=== PATIENT | male | born 1965 | race African-American/Black ===

== ENCOUNTER 2020-01-02 03:06 | Inpatient (IN) | payer MEDICAID, OTHER ==
[~2020-01-02] VITALS: Ht 193 cm; Wt 109.3 kg
[2020-01-02] MEDS ORDERED: ALBUTEROL (0.083%) 2.5MG/3ML NEB HHN STA (03:22)
[2020-01-02] MEDS ORDERED: IPRATROPIUM BROMIDE (0.02%) 0.5MG/2.5ML NEB HHN STA (03:22)
[2020-01-02] MEDS ORDERED: SODIUM CHLORIDE 0.9% 1,000 ML IV ONE (03:22)
[2020-01-02] MEDS ORDERED: AZITHROMYCIN 500 MG in DEXT 5% WATER 250 ML IV ONE (04:00)
[2020-01-02] MEDS ORDERED: CEFTRIAXONE 1 G PREMIX 50 ML IV ONE (04:00)
[2020-01-02 04:13] LABS: BASOPHILS % 0.5 % (0.0-2.0); EOSINOPHILS % 0.8 % (0.0-5.0); HEMATOCRIT. 43.8 % (42.0-52.0); HEMOGLOBIN. 14.2 g/dL (14.0-18.0); LYMPHOCYTES % 7.1 % (20.0-50.0); MEAN CORPUSCULAR HEMOGLOBIN 25.9 pg (28.0-32.0); MEAN CORPUSCULAR VOLUME 79.6 fL (80.0-94.0); MEAN PLATELET VOLUME 7.2 fl (7.4-10.4); MONOCYTES % 2.8 % (2.0-8.0); NEUTROPHILS % 88.8 % (40.0-76.0); PLATELET 239 x1000/uL (130-400); RED CELL DISTRIBUTION WIDTH 14.8 % (11.6-14.6)
[2020-01-02 04:15] LABS: CHLORIDE 102 mEq/L (98-107)
[2020-01-02] MEDS ORDERED: MORPHINE SULFATE 4 MG/ML CPJ (NOT FOR IM USE) IV ONE (06:00)
[2020-01-02] MEDS ORDERED: IPRATROPIUM/ALBUTEROL 0.5-3(2.5)MG/3ML NEB NEB PRN (07:00)
[2020-01-02] MEDS ORDERED: CLONIDINE 0.1MG TABLET PO PRN (07:00)
[2020-01-02] MEDS ORDERED: DOCUSATE SODIUM 100MG CAPSULE PO PRN (07:00)
[2020-01-02] MEDS ORDERED: ACETAMINOPHEN 325MG TABLET PO PRN (07:00)
[2020-01-02] MEDS ORDERED: AZITHROMYCIN 500 MG in DEXT 5% WATER 250 ML IV SCH (07:00)
[2020-01-02] MEDS ORDERED: ONDANSETRON HCL 4MG/2ML INJ IV PRN (07:00)
[2020-01-02] MEDS ORDERED: CEFTRIAXONE 1 G PREMIX 50 ML IV SCH (07:00)
[2020-01-02] MEDS: SODIUM CHLORIDE 0.45% 1,000 ML IV SCH ×2 (08:38→21:20)
[2020-01-02] MEDS: ENOXAPARIN 40MG/0.4ML SYR SUBCUT SCH (08:40)
[2020-01-02] MEDS: HYDROCODONE/ACETAMINOPHEN 5/325MG TABLET PO PRN ×2 (08:40→16:25)
[2020-01-02] MEDS ORDERED: KETOROLAC 15MG/ML VIAL IV PRN (10:30)
[2020-01-02 15:22] VITALS: BP 110/70
[2020-01-02 15:29] VITALS: BP 110/70
[2020-01-02] MEDS ORDERED: PNEUMOCOCCAL 23-VAL P-SAC VAC 0.5 ML IM ONE (16:15)
[2020-01-02 20:00] VITALS: BP 117/75
[2020-01-03] VITALS: BP 105/61
[2020-01-03] MEDS: HYDROCODONE/ACETAMINOPHEN 5/325MG TABLET PO PRN ×3 (01:53→14:46)
[2020-01-03 04:00] VITALS: BP 99/56
[2020-01-03] MEDS: CEFTRIAXONE 1 G PREMIX 50 ML IV SCH (05:10)
[2020-01-03] MEDS: AZITHROMYCIN 500 MG in DEXT 5% WATER 250 ML IV SCH (06:31)
[2020-01-03 06:55] LABS: BASOPHILS % 0.4 % (0.0-2.0); HEMATOCRIT. 39.2 % (42.0-52.0); HEMOGLOBIN. 12.7 g/dL (14.0-18.0); LYMPHOCYTES % 7.1 % (20.0-50.0); MEAN CORPUSCULAR HEMOGLOBIN 25.7 pg (28.0-32.0); MEAN CORPUSCULAR VOLUME 79.1 fL (80.0-94.0); MEAN PLATELET VOLUME 7.2 fl (7.4-10.4); MONOCYTES % 5.1 % (2.0-8.0); NEUTROPHILS % 83.4 % (40.0-76.0); PLATELET 257 x1000/uL (130-400); RED BLOOD CELL COUNT 4.96 mill/uL (4.7-6.1); RED CELL DISTRIBUTION WIDTH 15.1 % (11.6-14.6)
[2020-01-03 07:57] LABS: CHLORIDE 106 mEq/L (98-107)
[2020-01-03 08:00] VITALS: BP 114/69
[2020-01-03] MEDS: ENOXAPARIN 40MG/0.4ML SYR SUBCUT SCH (08:37)
[2020-01-03] MEDS: SODIUM CHLORIDE 0.45% 1,000 ML IV SCH (11:03)
[2020-01-03 12:00] VITALS: BP 114/73
[2020-01-03 16:00] VITALS: BP 115/61
[2020-01-03] MEDS: GUAIFENESIN 600MG ER TABLET PO SCH ×2 (16:57→21:12)
[2020-01-03 20:00] VITALS: BP 114/71
[2020-01-03] MEDS: IPRATROPIUM/ALBUTEROL 0.5-3(2.5)MG/3ML NEB HHN SCH (21:36)
[2020-01-04] VITALS: BP 107/67
[2020-01-04] MEDS: SODIUM CHLORIDE 0.45% 1,000 ML IV SCH (00:34)
[2020-01-04 04:00] VITALS: BP 126/82
[2020-01-04] MEDS: IPRATROPIUM/ALBUTEROL 0.5-3(2.5)MG/3ML NEB HHN SCH ×2 (04:50→09:17)
[2020-01-04] MEDS: CEFTRIAXONE 1 G PREMIX 50 ML IV SCH (05:18)
[2020-01-04] MEDS: AZITHROMYCIN 500 MG in DEXT 5% WATER 250 ML IV SCH (06:20)
[2020-01-04 08:35] VITALS: BP 115/69
[2020-01-04] MEDS: GUAIFENESIN 600MG ER TABLET PO SCH (09:36)
[2020-01-04] MEDS: ENOXAPARIN 40MG/0.4ML SYR SUBCUT SCH (09:40)
[2020-01-04 10:02] VITALS: BP 117/72
== END 2020-01-04 12:45 | disposition home or self-care (01) | DRG 139 ==
LOC: ER 03:06 → 6WST 05:27 → EDBEDREQ 05:31 → EDBEDREQSVC 05:31 → EDBEDREQTM 05:31 → EDBEDREQSVC 14:10 → ENRESERV 14:37 → 6WST 16:05
PROVIDERS: ADMIT Hospitalist; ATTEND Hospitalist
DX: J18.9 Pneumonia, unspecified organism (principal); J96.00 Acute respiratory failure, unspecified whether with hypoxia or hypercapnia; I95.9 Hypotension, unspecified; E44.1 Mild protein-calorie malnutrition; Z87.01 Personal history of pneumonia (recurrent); Z79.899 Other long term (current) drug therapy
CPT/HCPCS: 36415; 71045; 80053; 82962; 83605; 84484; 85025; 93005; 93970; 94640; 99291; J0456; J0696; J1650; J1885; J2270; J7030; J7060